=== PATIENT | male | born 1960 | race Caucasian/White ===

== ENCOUNTER → 2018-08-31 | Day surgery (SDC) | payer BC ==
[~2018-08-31] MED LIST: Lactated Ringers 1,000 ML IV SCH; Propofol 200 MG/20 ML SDV IV ONE
--- NOTE | 2018-09-03 14:02 | OR ---
DATE OF OPERATION: 08/31/2018 PREOPERATIVE DIAGNOSIS: SCREENING COLONOSCOPY. POSTOPERATIVE DIAGNOSIS: SCREENING COLONOSCOPY. SURGEON: Bart Fleming MD PROCEDURE: FULL-LENGTH COLONOSCOPY. ANESTHESIA: MAC via LACQUER COATER. COMPLICATIONS: None. SPECIMEN: None. FINDINGS: 1. Full-length colonoscopy. 2. Mild sigmoid diverticulosis. RECOMMENDATIONS: Followup colonoscopy every 10 years. INDICATIONS: The patient was sent by his primary provider for a screening colon. DESCRIPTION OF PROCEDURE: The patient was prepped and draped, placed in the left lateral decubitus position. A lubricated Olympus colonoscope was inserted and easily advanced to the cecum. Direct visualization of the ileocecal valve and appendiceal orifice was accomplished. The bowel prep was marginal. There was a lot of thicker stool in certain areas of the colon. Certainly, smaller polyps could have been missed in these areas as we could not completely irrigate and suction these areas. Upon withdrawal, throughout the entire length of the colon, I could find no signs of any polyps, mass, ulceration, or bleeding sites. No vascular abnormalities or signs of colitis. The patient does have mild diverticular disease in the sigmoid colon. The rectal vault appeared benign. Retroflexion showed no perianal lesions. Air was suctioned, the scope removed without complication. FLACO/DREW /[id number]
== END ==
LOC: CC.SDS 10:48
PROVIDERS: ATTEND Family Medicine
DX: Z12.11 Encounter for screening for malignant neoplasm of colon (principal); K57.30 Diverticulosis of large intestine without perforation or abscess without bleeding
CPT/HCPCS: 45378; J2704; J7120; G0121